=== PATIENT | male | born 1950 | race Caucasian/White ===

== ENCOUNTER 2023-04-07 07:28 | Day surgery (SDC) | payer MEDICARE, OTHER ==
[2023-04-07] MEDS ORDERED: Dextrose 5%-0.45% NaCl 1,000 ML IV SCH (07:30)
[2023-04-07] MEDS ORDERED: Midazolam 1 MG/ML 2 ML SDV ONE (07:54)
[2023-04-07] MEDS ORDERED: fentaNYL 100 MCG/2 ML SDV ONE (07:54)
[2023-04-07] MEDS ORDERED: fentaNYL 100 MCG/2 ML SDV IV ONE ×2 (08:25→08:26)
[2023-04-07] MEDS ORDERED: Midazolam 1 MG/ML 2 ML SDV IV ONE ×6 (08:26→08:37)
== END 2023-04-07 10:35 | disposition home or self-care (01) ==
LOC: DL.ENDO 07:28
PROVIDERS: ATTEND Internal Medicine Gastroenterology
DX: Z12.11 Encounter for screening for malignant neoplasm of colon (principal); K57.30 Diverticulosis of large intestine without perforation or abscess without bleeding; Z88.8 Allergy status to other drugs, medicaments and biological substances
CPT/HCPCS: G0121; J2250; J3010; J7042